=== PATIENT | male | born 1935 | race Caucasian/White ===

== ENCOUNTER → 2016-09-06 | Outpatient (CLI) | payer OTHER ==
[~2016-09-06] MED LIST: CALC600T14 PO; CHOL400C7 PO; FISHOIL PO; GLCSUNK; LISI-729 PO; METO-217 PO
== END | disposition home or self-care (01) ==
LOC: C.LAB1850 11:25
PROVIDERS: ATTEND Internal Medicine
DX: N40.0 Benign prostatic hyperplasia without lower urinary tract symptoms (principal); R97.20 Elevated prostate specific antigen [PSA]

== ENCOUNTER → 2016-10-29 | Outpatient (CLI) | payer OTHER | END | disposition home or self-care (01) | LOC: C.LAB1850 10:38 | PROVIDERS: ATTEND Internal Medicine | DX: R97.20 Elevated prostate specific antigen [PSA] (principal) ==

== ENCOUNTER → 2017-03-06 | Outpatient (CLI) | payer OTHER ==
[2017-03-06 10:14] LABS: BASO % 0.7 %; BASO ABS # 0.05 K/uL (0-0.2); COMPLETE YES; EOS % 2.6 %; HEMATOCRIT 45.2 % (42-52); IG% 0.3 %; LYMPH % 26.3 %; LYMPH ABS # 1.89 K/uL (1.2-3.4); MEAN CELL VOLUME 89.2 fL (80-100); MEAN CORPUSCULAR HEMOGLOBIN 30.2 pg (25-34); MEAN CORPUSCULAR HGB CONC 33.8 g/dl (32-36); MEAN PLATELET VOLUME 9.1 fL (7.4-10.4); MONO % 8.6 %; NEUT % 61.5 %; PLATELET COUNT 154 K/uL (130-400); RED BLOOD COUNT 5.07 M/uL (4.7-6.1); WHITE BLOOD COUNT 7.18 K/uL (4.8-10.8)
[2017-03-06 10:26] LABS: ALT/SGPT 29 U/L (12-78); AST/SGOT 25 U/L (15-37); BLOOD UREA NITROGEN 15 mg/dl (7-18); BUN/CREATININE RATIO 13.6 (10-20); CALCIUM 8.7 mg/dl (8.5-10.1); CARBON DIOXIDE 27 mmol/L (21-32); CHLORIDE 111 mmol/L (98-107); GLUCOSE 90 mg/dl (70-99); SODIUM 143 mmol/L (136-145)
[2017-03-06 10:31] LABS: ALKALINE PHOSPHATASE 51 U/L (45-117); CHOLESTEROL 82 mg/dl (0-200); CHOLESTEROL/HDL RATIO 2.6; HDL CHOLESTEROL 31 mg/dl; LDL CHOLESTEROL CALCULATED 36 mg/dl; TRIGLYCERIDES 73 mg/dl (0-150); VERY LOW DENSITY LIPOPROT CALC 15 mg/dl
== END | disposition home or self-care (01) ==
LOC: C.LAB1850 09:01
PROVIDERS: ATTEND Internal Medicine
DX: D69.6 Thrombocytopenia, unspecified (principal); I10 Essential (primary) hypertension; R97.20 Elevated prostate specific antigen [PSA]

== ENCOUNTER → 2017-09-13 | Outpatient (CLI) | payer OTHER ==
[2017-09-13 11:15] LABS: ALT/SGPT 31 U/L (12-78); AST/SGOT 26 U/L (15-37); BLOOD UREA NITROGEN 17 mg/dl (7-18); CALCIUM 8.2 mg/dl (8.5-10.1); CARBON DIOXIDE 28 mmol/L (21-32); CREATININE 1.11 mg/dl (0.60-1.40); GLUCOSE 87 mg/dl (70-99); POTASSIUM 3.8 mmol/L (3.5-5.1); SODIUM 137 mmol/L (136-145)
[2017-09-13 11:23] LABS: CHOLESTEROL 77 mg/dl (0-200); LDL CHOLESTEROL CALCULATED 31 mg/dl
== END | disposition home or self-care (01) ==
LOC: C.LAB1850 09:39
PROVIDERS: ATTEND Internal Medicine
DX: I25.10 Atherosclerotic heart disease of native coronary artery without angina pectoris (principal); I10 Essential (primary) hypertension; R97.20 Elevated prostate specific antigen [PSA]

== ENCOUNTER → 2018-03-07 | Outpatient (CLI) | payer OTHER ==
--- NOTE | 2018-03-07 15:34 | DIAGNOSTIC IMAGING REPORT ---
LUMBAR SPINE W/O CONTRAST CLINICAL HISTORY: 82 years-old Male with M54.16 Lumbar radiculopathy03/07/18 @ [facility], arrive at 2:30pm to re. Chronic low back pain without reported trauma. Pain radiates into the bilateral lower extremities, right greater than left COMPARISON: None available TECHNIQUE: Multiplanar, multi sequence MRI of the lumbar spine was performed without intravenous contrast. 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 Mild cortical thinning about the bilateral kidneys. Modic type III endplate changes at L5-S1. 6 mm anterolisthesis L4 on L5. No acute fracture, subluxation, or marrow replacing process. Minimal bone marrow edema with trace effusions at the L4-L5 facets. Signal within the imaged thoracic spinal cord appears normal. Conus medullaris terminates at T12-L1. The cauda equina appear to be within normal limits. Aorta and IVC are within normal limits. No pathologically enlarged lymph nodes. Heterogeneous appearance of the marrow signal throughout. T12-L1: No central canal or neural foraminal stenosis. Moderate facet arthrosis. L1-L2: Mild intervertebral disc space narrowing with spondylitic spurring and circumferential annular disc bulge with moderate facet arthrosis. No central canal or significant foraminal narrowing. L2-L3: Mild intervertebral disc space narrowing with spondylitic spurring and small circumferential disc bulge. Moderate facet arthrosis with ligamentum flavum thickening. No central canal stenosis. There is mild inferior foraminal narrowing bilaterally. L3-L4: Moderate intervertebral disc space narrowing with spondylitic spurring and circumferential annular disc bulge. Severe facet arthrosis with ligamentum flavum thickening. Thecal sac is narrowed to 5 mm in AP dimension resulting in severe central canal and moderate to severe bilateral foraminal narrowing. L4-L5: Moderate intervertebral disc space narrowing with circumferential annular disc bulge and anterolisthesis as above. Spondylitic spurring with severe facet arthrosis and ligamentum flavum thickening. AP dimension of the thecal sac is narrowed to 6 mm. There is resultant severe central canal and moderate to severe bilateral foraminal narrowing. L5-S1: Severe intervertebral disc space narrowing with spondylitic spurring and circumferential annular disc bulge with severe facet arthrosis and ligament of flavum thickening. Central canal is patent. Moderate bilateral foraminal narrowing. IMPRESSION: 1. No acute fracture or subluxation. 2. 6 mm anterolisthesis L4 on L5 is likely on a degenerative basis. Severe facet arthropathy with discogenic degenerative changes at this level result in severe central canal and moderate to severe bilateral foraminal narrowing. 3. At L3-L4 there is also severe central canal stenosis with moderate to severe bilateral foraminal narrowing. 4. Additional degenerative changes as above. The above report was generated using voice recognition software. It may contain grammatical, syntax or spelling errors. Electronically signed by: Jet Arteaga M.D. 03/07/2018 3:33 PM Dictated Date/Time: 03/07/2018 3:05 PM
== END | disposition home or self-care (01) ==
LOC: C.MRIBC 14:22
PROVIDERS: ATTEND Internal Medicine
DX: M54.16 Radiculopathy, lumbar region (principal); M99.73 Connective tissue and disc stenosis of intervertebral foramina of lumbar region

== ENCOUNTER → 2018-03-12 | Outpatient (CLI) | payer OTHER ==
[2018-03-12 13:59] LABS: ALT/SGPT 42 U/L (12-78); AST/SGOT 22 U/L (15-37); BLOOD UREA NITROGEN 19 mg/dl (7-18); CALCIUM 7.8 mg/dl (8.5-10.1); CARBON DIOXIDE 25 mmol/L (21-32); CHOLESTEROL 77 mg/dl (0-200); GLUCOSE 84 mg/dl (70-99); LDL CHOLESTEROL CALCULATED 26 mg/dl; POTASSIUM 3.5 mmol/L (3.5-5.1); SODIUM 140 mmol/L (136-145)
== END | disposition home or self-care (01) ==
LOC: C.LAB1850 09:59
PROVIDERS: ATTEND Internal Medicine
DX: I10 Essential (primary) hypertension (principal); E78.5 Hyperlipidemia, unspecified; Z87.898 Personal history of other specified conditions